=== PATIENT | female | born 1965 | race Caucasian/White ===

== ENCOUNTER 2017-06-26 21:00 | Emergency (ER) | payer OTHER ==
[~2017-06-26] VITALS: Ht 170.2 cm; Wt 136.1 kg
[~2017-06-26 21:00] MED LIST: ATORVASTATIN CA40 MG PO; AUGMENTIN 875875 MG PO; COREG6.25 MG PO; COZAAR 50 MG TA50 M2; K-DUR10 MEQ PO; LANTUS100 UNIT/M SQ; LASIX 40 MG TAB40 M2 PO; LEVOTHYROXIN0.075 MG PO; LISINOPRIL20 MG PO; METFORMIN HCL500 MG PO; NORCO 5-325 TA1 EACH PO; NOVOLOG100 UNIT/M PO
[2017-06-26] MEDS ORDERED: VICTOZA0.6 MG/0.1 SUBQ (21:13)
[2017-06-26] MEDS ORDERED: PENTOXIFYLLINE400 MG PO (21:14)
[2017-06-26] MEDS ORDERED: ZESTRIL30 MG PO (21:14)
[2017-06-26] MEDS ORDERED: DOXYCYCLINE 10100 M1 PO (21:54)
[2017-06-26 22:11] VITALS: BP 112/84
== END 2017-06-26 22:11 | disposition home or self-care (01) ==
LOC: ER 21:00
DX: E11.621 Type 2 diabetes mellitus with foot ulcer (principal); Z90.710 Acquired absence of both cervix and uterus; Z98.890 Other specified postprocedural states

== ENCOUNTER → 2017-10-30 | Outpatient (CLI) | payer OTHER ==
[~2017-10-30] MED LIST changes: +DOXYCYCLINE 10100 M1 PO; +PENTOXIFYLLINE400 MG PO; +VICTOZA0.6 MG/0.1 SUBQ; +ZESTRIL30 MG PO
--- NOTE | ~2017-10-30 | 2DMMODE ---
[facility] [address] [place] [address] 2 D/M-MODE ECHOCARDIOGRAM Name: JENY SMALL Room #: REG CL [facility]#: [id number] Admission: 10/30/17 Attend Phys: Hiram Stanley MD Discharge: Date of : 63 Date of Service: 10/30/17 1538 Report #: [id number] THIS REPORT FOR: //name// APPROVED REPORT Study performed: 10/30/2017 14:25:22 EXAM: Comprehensive 2D, Doppler, and color-flow Echocardiogram Patient Location: Echo lab Status: routine BSA: 2.34 HR: 73 bpm BP: 145/88 mmHg Other Information Study Quality: Good Indications Cardiomyopathy Hypertension/HDD 2D Dimensions RVDd: 31.58 mm LVEF(%): 58.11 (>50%) IVSd: 12.93 (7-11mm) LVOT Diam: 22.84 (18-24mm) LVDd: 49.88 mm PWd: 11.75 (7-11mm) Ascending Ao: 28.42 (22-36mm) LVDs: 34.53 (25-40mm) Aortic Root: 29.94 mm IVC: 15.00 mm Corado's LVEF: 58.11 % Volumes Left Atrial Volume (Systole) Single Plane 4CH: 40.01 mL Single Plane 2CH: 46.94 mL LA ESV Index: 20.00 mL/m2 Aortic Valve AoV Peak Cristo.: 1.36 m/s AO Peak Gr.: 7.44 mmHg LVOT Max P.35 mmHg LVOT Max V: 0.77 m/s SALUD Vmax: 2.30 cm2 Mitral Valve E/A Ratio: 0.9 MV Decel. Time: 207.41 ms [facility] [address] [place] [address] 2 D/M-MODE ECHOCARDIOGRAM Name: JENY SMALL Room #: REG [facility]#: [id number] Admission: 10/30/17 Attend Phys: Hiram Stanley MD Discharge: Date of : 63 Date of Service: 10/30/17 1538 Report #: [id number] MV E Max Cristo.: 0.76 m/s MV A Cristo.: 0.87 m/s MV PHT: 60.15 ms IVRT: 152.25 ms Pulmonary Valve PV Peak Cristo.: 1.33 m/s PV Peak Gr.: 7.11 mmHg Pulmonary Vein P Vein S: 0.57 m/s P Vein A: 0.30 m/s P Vein D: 0.47 m/s P Vein A Dur.: 138.4 msec P Vein S/D Ratio: 1.21 Tricuspid Valve TR Peak Cristo.: 2.42 m/s RAP Estimate: 5.00 mmHg TR Peak Gr.: 23.35 mmHg PA Pressure: 28.00 mmHg Left Ventricle Left ventricle is at the upper limits of normal. Mild concentric left ventricular hypertrophy. Left ventricular systolic function is mildly decreased. LVEF is 45-50%. Mild diastolic dysfunction is present (impaired relaxation pattern). Right Ventricle The right ventricle is normal size. The right ventricular systolic function is normal. Atria The left atrium size is normal. The right atrium size is normal. Aortic Valve Aortic valve leaflets are mildly thickened. Trace aortic regurgitation. There is no aortic valvular stenosis. Mitral Valve The mitral valve is mildly thickened. Mild mitral regurgitation. No evidence of mitral valve stenosis. Tricuspid Valve The tricuspid valve is normal in structure. Mild tricuspid regurgitation. PAP is estimated at 28 mmHg. Pulmonic Valve The pulmonary valve is normal in structure. Trace to mild pulmonic [address] [address] 2 D/M-MODE ECHOCARDIOGRAM Name: JENY SMALL Room #: REG CL [facility]#: [id number] Admission: 10/30/17 Attend Phys: Hiram Stanley MD Discharge: Date of : 63 Date of Service: 10/30/17 1538 Report #: [id number] regurgitation. Great Vessels The aortic root is normal in size. IVC is normal in size and collapses >50% with inspiration. Pericardium There is no pericardial effusion. <Conclusion> Left ventricle is at the upper limits of normal. Mild concentric left ventricular hypertrophy. Left ventricular systolic function is mildly decreased. Mild diastolic dysfunction is present (impaired relaxation pattern). The right ventricle is normal size. The left atrium size is normal. Trace aortic regurgitation. Mild mitral regurgitation. Mild tricuspid regurgitation. PAP is estimated at 28 mmHg. <ELECTRONICALLY SIGNED> By: Hiram Stanley MD 10/30/17 1538 1538 1538 Hiram Stanley MD /INF
== END ==
LOC: CV 10-23 15:34
DX: I08.1 Rheumatic disorders of both mitral and tricuspid valves (principal); I42.9 Cardiomyopathy, unspecified; I10 Essential (primary) hypertension

== ENCOUNTER → 2018-11-29 | Outpatient (CLI) | payer OTHER | LOC: NUC 07:48 | DX: I42.9 Cardiomyopathy, unspecified (principal); E78.5 Hyperlipidemia, unspecified; E66.9 Obesity, unspecified; I10 Essential (primary) hypertension; E11.9 Type 2 diabetes mellitus without complications; Z79.899 Other long term (current) drug therapy; Z79.4 Long term (current) use of insulin; Z82.49 Family history of ischemic heart disease and other diseases of the circulatory system ==

== ENCOUNTER → 2019-12-05 | Outpatient (CLI) | payer OTHER | LOC: SJCVC 10:17 | DX: R94.31 Abnormal electrocardiogram [ECG] [EKG] (principal); I42.9 Cardiomyopathy, unspecified; I10 Essential (primary) hypertension; E78.00 Pure hypercholesterolemia, unspecified; R60.9 Edema, unspecified ==

== ENCOUNTER → 2020-06-05 | Outpatient (CLI) | payer OTHER | LOC: SJCVCIMAG 09:07 | PROVIDERS: ATTEND Internal Medicine Cardiovascular Disease | DX: I34.0 Nonrheumatic mitral (valve) insufficiency (principal); I42.9 Cardiomyopathy, unspecified; I12.9 Hypertensive chronic kidney disease with stage 1 through stage 4 chronic kidney disease, or unspecified chronic kidney disease; N18.9 Chronic kidney disease, unspecified; E78.00 Pure hypercholesterolemia, unspecified; Z79.899 Other long term (current) drug therapy ==

== ENCOUNTER → 2020-12-24 | Outpatient (CLI) | payer OTHER | LOC: SJCVC 11:32 | PROVIDERS: ATTEND Internal Medicine Cardiovascular Disease | DX: R94.31 Abnormal electrocardiogram [ECG] [EKG] (principal); I21.3 ST elevation (STEMI) myocardial infarction of unspecified site; I42.9 Cardiomyopathy, unspecified; I25.10 Atherosclerotic heart disease of native coronary artery without angina pectoris; E78.00 Pure hypercholesterolemia, unspecified; R60.9 Edema, unspecified; E11.22 Type 2 diabetes mellitus with diabetic chronic kidney disease; I12.9 Hypertensive chronic kidney disease with stage 1 through stage 4 chronic kidney disease, or unspecified chronic kidney disease; N18.9 Chronic kidney disease, unspecified; E78.5 Hyperlipidemia, unspecified; Z90.710 Acquired absence of both cervix and uterus; Z98.890 Other specified postprocedural states; Z79.82 Long term (current) use of aspirin; Z79.4 Long term (current) use of insulin; Z79.899 Other long term (current) drug therapy; Z82.49 Family history of ischemic heart disease and other diseases of the circulatory system ==

== ENCOUNTER → 2021-06-23 | Outpatient (CLI) | payer OTHER | END | disposition home or self-care (01) | LOC: SJCVC 10:32 | PROVIDERS: ATTEND Internal Medicine Cardiovascular Disease | DX: R94.31 Abnormal electrocardiogram [ECG] [EKG] (principal); I25.10 Atherosclerotic heart disease of native coronary artery without angina pectoris; I42.9 Cardiomyopathy, unspecified; I12.9 Hypertensive chronic kidney disease with stage 1 through stage 4 chronic kidney disease, or unspecified chronic kidney disease; N18.9 Chronic kidney disease, unspecified; E11.22 Type 2 diabetes mellitus with diabetic chronic kidney disease; E78.5 Hyperlipidemia, unspecified; E78.00 Pure hypercholesterolemia, unspecified; Z79.4 Long term (current) use of insulin; Z79.899 Other long term (current) drug therapy; Z79.82 Long term (current) use of aspirin; Z72.89 Other problems related to lifestyle ==